=== PATIENT | male | born 1980 | race Caucasian/White ===

== ENCOUNTER 2017-03-19 06:41 | Emergency (ER) | payer MEDICARE ==
--- NOTE | 2017-03-19 07:17 | ERPHSYRPT ---
- History of Present Illness Time Seen by Provider: 03/19/17 07:12 Source: patient, family Exam Limitations: no limitations Patient Subjective Stated Complaint: was traveling from [facility] to home s/p sleep study et began to "feel funny" - states that his vision is blurry and he can not hear out of right ear with some pain in the forehead and right ear - reports some dizziness et slurred speech Triage Nursing Assessment: ambulatory to formerly [facility] with assistance per . alert/oriented - pleasant affect - with notable facial droop. skin pwd - no rash/injury. resps easy - non-labored Physician History: This is a 36-year-old white male with history of hydrocephaly and high blood pressure who has had a FLOWER GROWER shunt in the past. He apparently had just completed a sleep study at [facility] is brought by his with complaints that the patient suddenly complained that he could not see complaint of pain in his fore head he did not have any problems moving he did not have any loss of consciousness he is complaining of decreased hearing in his right ear. When I talk to the patient he has full range of motion to extremities he is alert oriented 3 has seen no focal deficits Patient states his symptoms came on just prior to arrival Past medical history includes hydrocephalus, high blood pressure. Past the surgical history includes FLOWER GROWER shunt. Timing/Duration: today (just prior to arrival) Severity: moderate Modifying Factors: Improves With: nothing Associated Symptoms: headaches, other (unable to see just prior to arrival decreased hearing right ear), No nausea, No vomiting, No abdominal pain, No shortness of breath, No heartburn, No diaphoresis, No cough, No chills, No chest pain, No fever, No loss of appetite, No malaise, No rash, No syncope, No seizure, No weakness Allergies/Adverse Reactions: No Known Drug Allergies Allergy (Unverified 07/17/16 09:27) Home Medications: Amlodipine Besylate [Norvasc] 5 mg PO DAILY 05/01/16 [History] Lisinopril 20 mg PO DAILY 05/01/16 [History] Sertraline HCl 100 mg [Zoloft 100 MG] 100 mg PO DAILY 05/01/16 [History] Fluticasone Propionate [Flonase NASAL] 16 gm NS DAILY 03/19/17 [History] Hx Tetanus, Diphtheria Vaccination/Date Given: Yes Hx Influenza Vaccination/Date Given: No Hx Pneumococcal Vaccination/Date Given: No Immunizations Up to Date: Yes - Review of Systems Constitutional: No Fever, No Chills Eyes: Vision Changes, No Discharge, No Eye Pain, No Eye Redness, No Itchy, No Photophobia, No Tearing, No Double Vision, No Foreign Body Sensation Ears, Nose, & Throat: Hearing Changes (decreased hearing right ear), No Ear Pain , No Ear Discharge, No Tinnitus, No Nose Pain, No Nose Congestion, No Nose Discharge, No Sinus Drainage, No Epistaxis, No Mouth Pain, No Mouth Swelling, No Loose Teeth, No Throat Pain, No Throat Swelling, No Hoarse, No Painful Swallowing, No Snoring, No Stridor Respiratory: No Cough, No Dyspnea Cardiac: No Chest Pain, No Edema, No Syncope Abdominal/Gastrointestinal: No Abdominal Pain, No Nausea, No Vomiting, No Diarrhea Genitourinary Symptoms: No Dysuria Musculoskeletal: No Back Pain, No Neck Pain Skin: No Rash Neurological: No Dizziness, No Focal Weakness, No Sensory Changes Psychological: No Symptoms Endocrine: No Symptoms All Other Systems: Reviewed and Negative - Past Medical History Pertinent Past Medical History: Yes Cardiac History: Hypertension Psycho-Social History: Depression Other Medical History: WATER ON THE BRAIN AT - Past Surgical History Past Surgical History: Yes Neuro Surgical History: Brain Shunt Other Surgical History: brain shunt replacement - Social History Smoking Status: Never smoker Exposure to second hand smoke: No Drug Use: none Patient Lives Alone: No - Nursing Vital Signs Nursing Vital Signs: Initial Vital Signs Temperature 99.4 F Temperature Source Oral Pulse Rate 103 Respiratory Rate 12 Blood Pressure [] 137/78 Pain Intensity 0 - Physical Exam General Appearance: no apparent distress, alert Eye Exam: PERRL/EOMI, eyes nml inspection, other (fundi unremarkable) Ears, Nose, Throat Exam: pharynx normal, moist mucous membranes, TM abnormal (R) , No dry mucous membranes, No TM abnormal (L), No pharyngeal erythema, No tonsillar exudate Neck Exam: normal inspection, non-tender, supple, full range of motion Respiratory Exam: normal breath sounds, lungs clear, No respiratory distress Cardiovascular Exam: regular rate/rhythm, normal heart sounds, normal peripheral pulses Gastrointestinal/Abdomen Exam: soft, normal bowel sounds, No tenderness, No mass Back Exam: normal inspection, normal range of motion, No CVA tenderness, No vertebral tenderness Extremity Exam: normal inspection, normal range of motion, pelvis stable Neurologic Exam: alert, oriented x 3, cooperative, normal mood/affect, nml cerebellar function, nml station & gait, sensation nml, other (patient is alert , oriented 3, cranial nerves II through XII, intact, DTRs symmetrical 2 over 4 , Luis Coma Scale is 15 finger speech is intelligible no facial droops no pronator drift recruiting associate equal and symmetrical 5 over5,ensation intact to all extremities), No motor deficits Skin Exam: normal color, warm, dry, No rash SpO2 Interpretation: normal (96%) SpO2: 96 Oxygen Delivery: Room Air - Course Nursing assessment & vital signs reviewed: Yes EKG Interpreted by Me: RATE (96 bpm), Sinus Rhythm, NORMAL AXIS, Other (EKG, normal sinus rhythm, 96 beats for minute, normal axis, no acute ST or T wave changes, essentially normal EKG) - CT Exams Head CT Interpretation: Tele-radiologist Report (head CT: Impression: Ventricular size has not increased compared to the prior study. No evidence of an acute intracranial abnormality. No significant change compared to prior examination.) Ordered Tests: Active Orders 24 hr Category Date Time Status ACCUCHECK [Accucheck] STAT Care 03/19/17 07:07 Active Lithographic Retoucher Apprentice STAT Care 03/19/17 07:19 Active EKG-ER Only STAT Care 03/19/17 07:19 Active IV Insertion STAT Care 03/19/17 07:19 Active IV Insertion-2nd Peripheral STAT Care 03/19/17 07:19 Active Visual Acuity STAT Care 03/19/17 07:21 Active HEAD WITHOUT CONTRAST [CT] Stat Exams 03/19/17 07:06 Taken CBC W DIFF Stat Lab 03/19/17 07:30 Completed CMP Stat Lab 03/19/17 07:30 Completed PTT Stat Lab 03/19/17 07:30 Completed Medication Summary Discontinued Medications Generic Name Dose Route Start Last Admin Trade Name Freq PRN Reason Stop Dose Admin Aspirin 81 mg 03/19/17 08:20 Baby Aspirin 81 Mg Chew PO 03/19/17 08:21 STAT ONE Ondansetron HCl 4 mg 03/19/17 08:09 03/19/17 08:19 Zofran 4 Mg/2 Ml Vial IV 03/19/17 08:10 4 mg STAT ONE Administration Ondansetron HCl Confirm 03/19/17 08:17 Zofran 4 Mg/2 Ml Vial Administered 03/19/17 08:18 Dose 4 mg .ROUTE .STK-MED ONE Lab/Rad Data: Laboratory Result Diagrams 03/19/17 07:30 03/19/17 07:30 Laboratory Results 03/19/17 03/19/17 03/19/17 Range/Units 07:30 07:30 07:30 WBC 10.9 H (4.0-10.5) K/mm3 RBC 5.03 (4.1-5.6) M/mm3 Hgb 15.5 (12.5-18.0) gm/dl Hct 45.0 (42-50) % MCV 89.5 (78-100) fl MCH 30.8 (26-32) pg MCHC 34.4 (32-36) g/dl RDW 13.2 (11.5-14.0) % Plt Count 220 (150-450) K/mm3 MPV 9.9 H (6-9.5) fl Gran % 76.9 H (36.0-66.0) % Lymphocytes % 16.4 L (24.0-44.0) % Monocytes % 6.0 (0.0-12.0) % Eosinophils % 0.6 (0.00-5.0) % Basophils % 0.1 (0.0-0.4) % Basophils # 0.01 (0-0.4) APTT 33.1 (24.1-36.1) SECONDS Sodium 141 (136-145) mEq/L Potassium 3.6 (3.5-5.1) mEq/L Chloride 105 (98-107) mEq/L Carbon Dioxide 28.3 (21-32) mEq/L Anion Gap 11.7 (5-15) MEQ/L BUN 17 (9-20) mg/dL Creatinine 1.01 (0.55-1.30) mg/dl Estimated GFR > 60 ML/MIN Glucose 122 H (70-110) MG/DL Calcium 8.9 (8.5-10.1) mg/dL Total Bilirubin 0.6 (0.2-1.0) mg/dL AST 14 L (15-37) U/L ALT 17 (12-78) U/L Alkaline Phosphatase 62 (46-116) U/L Serum Total Protein 7.9 (6.4-8.2) gm/dL Albumin 3.7 (3.4-5.0) g/dL - Progress Progress: improved Progress Note: 03/19/17 07:17 36-year-old white male with history of hydrocephaly brought by his with complaint of sudden complaint that he could not see on the way going home after a sleep study at [facility] patient also complaining of decreased hearing in his right ear. On physical examination patient is alert oriented 3 he is moving all extremities he has no facial droop his speech does not appear to be slurry to me recruiting associate are equal symmetrical 5 over 5 finger-nose within normal limits no pronator drift sensation is intact to all extremities for range of motion to all extremities. Patient does have somewhat of erythema of the right tympanic membrane. I'm really not finding any focal deficits this is this time he does have a history of not being able to see for a brief period of time in the car. Will go ahead and obtain CT of the head and appropriate labs 03/19/17 08:00 Patient states he feels like he is back to normal. He states he had several minutes of her being unable to see in the car on the way home this morning. And he had a frontal headache. Visual quintanilla appear to be intact. Vision is poor bilaterally but patient is seeing out of both eyes he wears glasses. Awaiting for head CT results and lab results. 03/19/17 08:[address] no acute changes. Patient was complaining of some nauseousness. Patient was given Zofran patient feels like he is back to normal. I've discussed the case with Dr. Covington will place patient on aspirin 81 mg per day I've given him when in the emergency room. Will also write for Zofran. Patient is to follow-up with Dr. Covington Wednesday. - Departure Time of Disposition: 08:25 Departure Disposition: Home Clinical Impression: Vision disturbance Headache Qualifiers: Headache type: unspecified Headache chronicity pattern: unspecified pattern Intractability: not intractable Qualified Code(s): R51 - Headache Condition: Fair Critical Care Time: No Instructions: Headache Additional Instructions: Return home. Aspirin 81 mg orally daily, Zithromax Z-Ti as directed, Follow-up with Dr. Covington Wednesday call for appointment, Return for acute distress or for severe symptoms. Prescriptions: Azithromycin 250 mg [Zithromax 250 MG TABLET] 0 mg PO ZPACK #6 tablet
[2017-03-19 07:40] LABS: BASOPHIL % 0.1 % (0.0-0.4); Eosinophil % 0.6 % (0.00-5.0); Granulocytes % 76.9 % (36.0-66.0); Lymphocytes % 16.4 % (24.0-44.0); Mean Cell Volume 89.5 fl (78-100); Mean Corpuscular Hemoglobin 30.8 pg (26-32); Mean Platelet Volume 9.9 fl (6-9.5); Platelet Count 220 K/mm3 (150-450); Red Blood Count 5.03 M/mm3 (4.1-5.6); Red Cell Distribution Width 13.2 % (11.5-14.0); White Blood Count 10.9 K/mm3 (4.0-10.5)
[2017-03-19 07:59] LABS: ALBUMIN 3.7 g/dL (3.4-5.0); ALKALINE PHOSPHATASE 62 U/L (46-116); ANION GAP 11.7 MEQ/L (5-15); BILIRUBIN,TOTAL 0.6 mg/dL (0.2-1.0); BLOOD UREA NITROGEN 17 mg/dL (9-20); CHLORIDE 105 mEq/L (98-107); Carbon Dioxide 28.3 mEq/L (21-32); Glucose 122 MG/DL (70-110); Potassium 3.6 mEq/L (3.5-5.1); SGOT/AST 14 U/L (15-37); SGPT/ALT 17 U/L (12-78); SODIUM 141 mEq/L (136-145); Total Protein 7.9 gm/dL (6.4-8.2)
[2017-03-19] MEDS ORDERED: Zofran 4 MG/2 ML VIAL IV ONE (08:09)
[2017-03-19] MEDS ORDERED: Zofran 4 MG/2 ML VIAL ONE (08:17)
[2017-03-19] MEDS ORDERED: BABY ASPIRIN 81 MG CHEW PO ONE (08:20)
[2017-03-19] MEDS ORDERED: BABY ASPIRIN 81 MG CHEW ONE (08:25)
[2017-03-19 08:39] VITALS: BP 127/77; PULSE 100; O2SAT 94
--- NOTE | 2017-03-19 09:20 | XRAY ---
Indication: Malaise. Loss of vision. Multiple contiguous axial images obtained through the head without contrast. Comparison: July 17, 2016. Stable bilateral ventricular shunts and previous left paramedian occipital craniectomy. 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 The ventricular system is stable in size and configuration without hydrocephalus. No acute intracranial hemorrhage or mass effect. Bony calvarium intact. Again there is complete opacification of the right mastoid air cells. Minimal mucosal thickening of both ethmoid sinuses. Remaining visualized paranasal sinuses and left mastoid air cells are clear. Impression: 1. Stable bilateral ventricular shunts without hydrocephalus. 2. Stable hypoplastic left cerebellum. 3. No new/acute intracranial abnormalities. 4. Stable complete opacification of right mastoid air cells presumed inflammatory. Comment: Preliminary interpretation was made by [facility]. No discrepancy. CT DI 70.38
== END 2017-03-19 08:37 ==
LOC: ED 06:41
DX: R51 Headache (principal); H53.9 Unspecified visual disturbance; R11.0 Nausea; R42 Dizziness and giddiness; R47.81 Slurred speech; I10 Essential (primary) hypertension
CPT/HCPCS: 36000; 36415; 70450; 80053; 82962; 85025; 85730; 93005; 93041; 96360; 96374; 99284; 99285; J2405; A9270-GY

== ENCOUNTER 2018-08-28 09:15 | Emergency (ER) | payer MEDICARE ==
[2018-08-28 09:24] VITALS: PULSE 95; O2SAT 97
--- NOTE | 2018-08-28 09:57 | ERPHSYRPT ---
- History of Present Illness Time Seen by Provider: 08/28/18 09:48 Source: patient Exam Limitations: no limitations Patient Subjective Stated Complaint: HEADACHE X 3 DAYS. NO N&V. STATES WAS DIZZY THIS MORNING WHEN WOKE UP. FEELS HOT AND COLD. Triage Nursing Assessment: ALERT AND ORIENTED. ANSWERS QUESTIONS APPROPIRATLY. PUPILS PERRLA. Physician History: 38-year-old white male with history of hydrocephaly, depression, DOCKWORKER shunt, arrives with complaint of headache off and on for 3 days located on the top of his head towards the occipital region "where his shunt is" off-and-on worse with movement. Patient not nauseous no vomiting no fevers, no movement changes no speech changes. Past medical history includes hydrocephaly with water and the brain at , depression, DOCKWORKER shunt one seizure approximately 2 years ago Past surgical history includes DOCKWORKER shunt, tonsillectomy Social history patient denies tobacco alcohol or illicit drug use Timing/Duration: day(s) (3 days) Severity: moderate Modifying Factors: Improves With: nothing Associated Symptoms: headaches, No nausea, No vomiting, No abdominal pain, No heartburn, No diaphoresis, No cough, No chills, No chest pain, No fever, No loss of appetite, No malaise, No rash, No syncope, No seizure, No weakness Allergies/Adverse Reactions: No Known Drug Allergies Allergy (Unverified 07/17/16 09:27) Home Medications: Amlodipine Besylate [Norvasc] 5 mg PO DAILY 05/01/16 [History] Lisinopril 20 mg PO DAILY 05/01/16 [History] Sertraline HCl 100 mg [Zoloft 100 MG] 100 mg PO DAILY 05/01/16 [History] Fluticasone Propionate [Flonase NASAL] 16 gm NS DAILY 03/19/17 [History] Divalproex Sodium [Divalproex Sodium ER] 500 mg PO BID 08/28/18 [History] Hx Tetanus, Diphtheria Vaccination/Date Given: Yes Hx Influenza Vaccination/Date Given: No Hx Pneumococcal Vaccination/Date Given: No - Review of Systems Constitutional: No Fever, No Chills Eyes: No Symptoms Ears, Nose, & Throat: No Symptoms Respiratory: No Cough, No Dyspnea Cardiac: No Chest Pain, No Edema, No Syncope Abdominal/Gastrointestinal: No Abdominal Pain, No Nausea, No Vomiting, No Diarrhea Genitourinary Symptoms: No Dysuria Musculoskeletal: No Back Pain, No Neck Pain Skin: No Rash Neurological: Headache, No Dizziness, No Focal Weakness, No Gait Changes, No Irritability, No Lethargy, No Paralysis, No Parasthesia, No Seizure, No Sensory Changes, No Speech Changes, No Tics, No Tremors, No Vertigo Psychological: No Symptoms Endocrine: No Symptoms All Other Systems: Reviewed and Negative - Past Medical History Pertinent Past Medical History: Yes Neurological History: Seizures Cardiac History: Hypertension Psycho-Social History: Depression Other Medical History: WATER ON THE BRAIN AT . 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, FOCAL SEIZURE 2016 - Past Surgical History Past Surgical History: Yes Neuro Surgical History: Brain Shunt Other Surgical History: brain shunt replacement MAY 2016 - Social History Smoking Status: Never smoker Exposure to second hand smoke: No Drug Use: none Patient Lives Alone: No - Nursing Vital Signs Nursing Vital Signs: Initial Vital Signs Temperature 97.4 F 08/28/18 09:15 Pulse Rate 95 H 08/28/18 09:15 Respiratory Rate 18 08/28/18 09:15 Blood Pressure 153/92 08/28/18 09:15 O2 Sat by Pulse Oximetry 97 08/28/18 09:15 Pain Scale Pain Intensity 0 - Physical Exam General Appearance: no apparent distress, alert Eye Exam: PERRL/EOMI, eyes nml inspection Ears, Nose, Throat Exam: normal ENT inspection, TMs normal, pharynx normal, moist mucous membranes Neck Exam: normal inspection, non-tender, supple, full range of motion Respiratory Exam: normal breath sounds, lungs clear, No respiratory distress Cardiovascular Exam: regular rate/rhythm, normal heart sounds, normal peripheral pulses, capillary refill <2 sec Gastrointestinal/Abdomen Exam: soft, normal bowel sounds, No tenderness, No mass Back Exam: normal inspection, normal range of motion, No CVA tenderness, No vertebral tenderness Extremity Exam: normal inspection, normal range of motion, pelvis stable Neurologic Exam: alert, oriented x 3, cooperative, open end spinning operator II-XII nml as tested, normal mood/affect, nml cerebellar function, nml station & gait, sensation nml, No motor deficits, No sensory deficit, No disoriented, No confusion, No agitation, No uncooperative, No intoxicated appearance, No depressed mood/affect , No motor weakness, No facial droop, No slurred speech, No aphasia, No dysarthria, No abnormal gait, No abnormal cerebellar tests, No abnormal open end spinning operator II- XII Skin Exam: normal color, warm, dry, No rash SpO2 Interpretation: normal (97%) SpO2: 97 - Course Nursing assessment & vital signs reviewed: Yes - CT Exams Head CT Interpretation: Tele-radiologist Report (CT of the head without contrast: Addendum to head CT: The prior head CT exam from [id number] now available for review and shows that the lateral ventricles on todays CTexam are markedly increased in size when compared to the prior head CT. The positions of the ventrulostomy shunt catheters are unchanged since prior head CT. 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 Bilateral parietaloccipitalccipital ventricular ostomy shunt catheters with the distal tip in the temporal horn of the right lateral ventricle within the main body of the left lateral ventricle the anterior horns of the brain measure 4.3 cm in transaxial diameter measured on image 22 of series 2 and image 60 of image 104. 3. Isa stroke program early CT score equals 10.), AAA Ordered Tests: Active Orders 24 hr Category Date Time Status IV Insertion STAT Care 08/28/18 11:17 Active HEAD WITHOUT CONTRAST [CT] Stat Exams 08/28/18 10:04 Taken CBC W DIFF Stat Lab 08/28/18 10:28 Completed CMP Stat Lab 08/28/18 10:28 Completed Lab/Rad Data: Laboratory Result Diagrams 08/28/18 10:28 08/28/18 10:28 Laboratory Results 08/28/18 08/28/18 08/28/18 Range/Units 10:28 10:28 10:28 WBC 7.0 (4.0-10.5) K/mm3 RBC 4.85 (4.1-5.6) M/mm3 Hgb 15.1 (12.5-18.0) gm/dl Hct 43.9 (42-50) % MCV 90.5 (78-100) fl MCH 31.1 (26-32) pg MCHC 34.4 (32-36) g/dl RDW 14.1 H (11.5-14.0) % Plt Count 190 (150-450) K/mm3 MPV 9.5 (6-9.5) fl Gran % 63.4 (36.0-66.0) % Eos # (Auto) 0.10 (0-0.5) Absolute Lymphs (auto) 1.86 (1.0-4.6) Absolute Monos (auto) 0.59 (0.0-1.3) Lymphocytes % 26.5 (24.0-44.0) % Monocytes % 8.4 (0.0-12.0) % Eosinophils % 1.4 (0.00-5.0) % Basophils % 0.3 (0.0-0.4) % Absolute Granulocytes 4.44 (1.4-6.9) Basophils # 0.02 (0-0.4) Sodium 140 (137-145) mmol/L Potassium 4.2 (3.5-5.1) mmol/L Chloride 106 (98-107) mmol/L Carbon Dioxide 24 (22-30) mmol/L Anion Gap 14.3 (5-15) MEQ/L BUN 20 (9-20) mg/dL Creatinine 0.81 (0.66-1.25) mg/dL Estimated GFR > 60.0 ML/MIN Glucose 117 H (74-106) mg/dL Calcium 9.4 (8.4-10.2) mg/dL Total Bilirubin 0.30 (0.2-1.3) mg/dL AST 62 H (17-59) U/L ALT 94 H (0-50) U/L Alkaline Phosphatase 41 (38-126) U/L Serum Total Protein 6.6 (6.3-8.2) g/dL Albumin 4.0 (3.5-5.0) g/dL Valproic Acid 86.1 (50-100) ug/mL - Progress Progress: improved Progress Note: 08/28/18 09:53 38-year-old white male with history of hydrocephaly, DOCKWORKER shunt who apparently had a grand mal seizure approximately 2 years ago. He arrives with complaint of pain in the back of his head described as sharp worse with moving his head around and activity symptoms for 3 days. He states that he has taken Advil for this. Although the patient apparently rated his pain as 6, he now states that his head is a better and his pain is worse when he moves his head around. He has not had any fevers he is not vomiting no nausea. Patient does state that last time he had similar symptoms he apparently had to have his shunt replaced. Patient did have a history of a grand mal seizure approximately 2 years ago. Patient does look to his spouse for answers to his questions especially when questioned about pain. I did offer patient a shot of morphine for his pain he does not want this. When I offered Tylenol he stated that he had taken Advil at home but did not get good pain relief. Patient really states that this point he does not want anything for his pain. Will go ahead and obtain CBC CMP patient states he is on valproic acid for his "moods" Will check a level. We'll go ahead and check head CT to rule out worsening hydrocephaly. 08/28/18 11:05 CT of the head is obtained and shows the lateral ventricles on today's CT or markedly increased in size when compared to the prior head CT done on 02/02/2018 the positions of the ventriculostomy shunt catheters are unchanged since prior head CT Patient with Isa stroke program early CT score is 10 Patient appears to be stable at this time I have contacted [facility] one call and the nurses have arranged to have radiology send patient's CT from today as well as prior CT to [facility] Patient's CBC chemistry are essentially normal with the exception of slight elevation of liver functions. 08/28/18 11:18 Patient's case is discussed with Dr. Franklin, neurosurgeonist at [facility]. He recommended that patient be sent through the emergency room at [facility]. Patient is stable at this time will place a saline lock. Send patient on monitor. 08/28/18 11:20 - Departure Time of Disposition: 11:20 Departure Disposition: Transfer ([facility]) Clinical Impression: Hydrocephalus Headache Qualifiers: Headache type: unspecified Headache chronicity pattern: acute headache Intractability: not intractable Qualified Code(s): R51 - Headache Condition: Fair Critical Care Time: No Referrals: MARY LOCKETT MD [Primary Care Provider] -
[2018-08-28 10:30] LABS: BASOPHIL % 0.3 % (0.0-0.4); Basophil (Absolute #) 0.02 (0-0.4); Eosinophil % 1.4 % (0.00-5.0); Granulocyte Absolute (ANC) 4.44 (1.4-6.9); Granulocytes % 63.4 % (36.0-66.0); Hematocrit 43.9 % (42-50); Hemoglobin 15.1 gm/dl (12.5-18.0); Lymphocyte (Absolute #) 1.86 (1.0-4.6); Lymphocytes % 26.5 % (24.0-44.0); Mean Cell Volume 90.5 fl (78-100); Mean Corpuscular Hemoglobin 31.1 pg (26-32); Mean Corpuscular Hgb Concent. 34.4 g/dl (32-36); Mean Platelet Volume 9.5 fl (6-9.5); Monocyte (Absolute #) 0.59 (0.0-1.3); Monocytes % 8.4 % (0.0-12.0); Platelet Count 190 K/mm3 (150-450); Red Blood Count 4.85 M/mm3 (4.1-5.6); Red Cell Distribution Width 14.1 % (11.5-14.0)
[2018-08-28 10:47] LABS: ALKALINE PHOSPHATASE 41 U/L (38-126); ANION GAP 14.3 MEQ/L (5-15); BLOOD UREA NITROGEN 20 mg/dL (9-20); CHLORIDE 106 mmol/L (98-107); Calcium 9.4 mg/dL (8.4-10.2); Carbon Dioxide 24 mmol/L (22-30); Creatinine 1 0.81 mg/dL (0.66-1.25); Glucose 117 mg/dL (74-106); Potassium 4.2 mmol/L (3.5-5.1); SGOT/AST 62 U/L (17-59); SGPT/ALT 94 U/L (0-50); SODIUM 140 mmol/L (137-145); Total Protein 6.6 g/dL (6.3-8.2)
[2018-08-28 11:05] VITALS: BP 128/89
--- NOTE | 2018-08-28 20:28 | XRAY ---
Indication: Headache. History hydrocephalus with shunt. Multiple contiguous axial images obtained through the head without contrast. Comparison: February 02, 2018. Again there is left paramedian occipital craniotomy, hypoplastic left cerebellum, and bilateral ventricular shunt catheters unchanged in position. New communicating type hydrocephalus without transependymal edema. More specifically the left and right lateral ventricles are at least 2 cm in diameter, previously slitlike. Third and fourth ventricles are also prominent. No acute intracranial hemorrhage or mass effect. Remaining bony calvarium intact. Stable partial opacification of the right mastoid air cells. Visualized paranasal sinuses and left mastoid air cells remain clear. Impression: 1. New communicating type hydrocephalus with bilateral ventricular shunt catheters in situ. 2. Stable hypoplastic left cerebellum and partial opacification of right mastoid air cells. Comment: Preliminary interpretation was made by [facility]. No critical discrepancy. CTDI 70.87
== END 2018-08-28 12:00 | disposition short-term general hospital (02) ==
LOC: ED 09:15
DX: G91.9 Hydrocephalus, unspecified (principal); R51 Headache; R42 Dizziness and giddiness; G40.909 Epilepsy, unspecified, not intractable, without status epilepticus; I10 Essential (primary) hypertension; F32.9 Major depressive disorder, single episode, unspecified; Z79.899 Other long term (current) drug therapy
CPT/HCPCS: 36000; 36415; 70450; 80053; 80164; 85025; 99285

== ENCOUNTER 2018-10-22 18:36 | Emergency (ER) | payer MEDICARE ==
[2018-10-22] MEDS ORDERED: cereBYX 50 MG/ML*** 1,000 MG in Sodium Chloride 0.9% 100 ML IVPB 100 ML IV ONE (18:57)
--- NOTE | 2018-10-22 18:59 | ERPHSYRPT ---
- History of Present Illness Time Seen by Provider: 10/22/18 18:55 Source: patient Exam Limitations: clinical condition Patient Subjective Stated Complaint: pt here for seizure at home that lasted about 3 minutes according to , pt has hx of seizures. Triage Nursing Assessment: pt alert, oreinted, co cramping to both lower legs, and states he feels tried Physician History: PATIENT WITH A HISTORY OF HYDROCEPHALUS AT WITH GENERAL DOC SHUNT INSERTION AND A HISTORY OF SEIZURES. PATIENT STATES HE DISCONTINUED HIS SEIZURE MEDICATION KEPPRA SEVERAL MONTHS AGO HAD A SEIZURE TONIGHT, PATIENT DENIES HEADACHE, HEAD OR NECK PAIN. PATIENT UNDERWENT A SHUNT REVISION IN APRIL 2016 AND AUGUST 2018. Timing/Duration: today Severity: moderate Character of Deficits: none Deficits: no difficulties Baseline/Normal Cognition: alert oriented x 3 Current Cognition: alert oriented x 3 Baseline Gait: walks w/o assistance Associated Symptoms: denies symptoms Allergies/Adverse Reactions: No Known Drug Allergies Allergy (Verified 10/22/18 18:45) Home Medications: Amlodipine Besylate [Norvasc] 5 mg PO DAILY 05/01/16 [History] Lisinopril 20 mg PO DAILY 05/01/16 [History] Sertraline HCl 100 mg [Zoloft 100 MG] 100 mg PO DAILY 05/01/16 [History] Fluticasone Propionate [Flonase NASAL] 16 gm NS DAILY 03/19/17 [History] Divalproex Sodium [Divalproex Sodium ER] 500 mg PO BID 08/28/18 [History] Hx Tetanus, Diphtheria Vaccination/Date Given: No Hx Influenza Vaccination/Date Given: Yes Hx Pneumococcal Vaccination/Date Given: No Immunizations Up to Date: Yes - Review of Systems Constitutional: No Fever, No Chills Eyes: No Symptoms Ears, Nose, & Throat: No Symptoms Respiratory: No Symptoms, No Cough, No Dyspnea Cardiac: No Symptoms, No Chest Pain, No Edema, No Syncope Abdominal/Gastrointestinal: No Symptoms, No Abdominal Pain, No Nausea, No Vomiting, No Diarrhea Genitourinary Symptoms: No Symptoms, No Dysuria Musculoskeletal: No Symptoms, No Back Pain, No Neck Pain Skin: No Rash Neurological: Seizure, No Dizziness, No Focal Weakness, No Sensory Changes Psychological: No Symptoms Endocrine: No Symptoms All Other Systems: Reviewed and Negative - Past Medical History Pertinent Past Medical History: Yes Neurological History: Seizures Cardiac History: Hypertension Psycho-Social History: Depression Other Medical History: 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, FOCAL SEIZURE 2017 - Past Surgical History Past Surgical History: Yes Neuro Surgical History: Brain Shunt Other Surgical History: brain shunt replacement 2018 - Social History Smoking Status: Never smoker Exposure to second hand smoke: No Drug Use: none Patient Lives Alone: No - Nursing Vital Signs Nursing Vital Signs: Initial Vital Signs Temperature 99.0 F 10/22/18 18:37 Pulse Rate 107 H 10/22/18 18:37 Respiratory Rate 16 10/22/18 18:37 Blood Pressure 150/89 10/22/18 18:37 O2 Sat by Pulse Oximetry 93 L 10/22/18 18:37 Pain Scale Pain Intensity 4 - [place] Scale Best Eye Response ([place]): (4) open spontaneously Best Verbal Response ([place]): (5) oriented Best Motor Response ([place]): (6) obeys commands [place] Total: 15 - Physical Exam General Appearance: no apparent distress, alert Eye Exam: bilateral eye: normal inspection, PERRL, EOMI Ears, Nose, Throat Exam: normal ENT inspection, moist mucous membranes Neck Exam: normal inspection, non-tender, supple, other (NO POST CERC) Respiratory: normal breath sounds, lungs clear, airway intact, No respiratory distress Cardiovascular: regular rate/rhythm, No edema Gastrointestinal: soft, normal bowel sounds (NONTENDER), No tenderness, No distention Back Exam: normal inspection Extremity Exam: normal inspection, No pedal edema Peripheral Pulses: carotid (R): 2+, carotid (L): 2+, femoral (R): 2+, femoral (L ): 2+, dorsalis-pedis (R): 2+, dorsalis-pedis (L): 2+ 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, 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 Exam: normal hearing, normal speech, tongue midline Coordination/Gait: normal finger to nose, normal gait DTR: bicep (R): 2+, bicep (L): 2+, tricep (R): 2+, tricep (L): 2+, knee (R): 2+ , knee (L): 2+, ankle (R): 2+, ankle (L): 2+ Skin Exam: normal color, warm, dry, No rash SpO2 Interpretation: normal SpO2: 93 Oxygen Delivery: Room Air - CT Exams Head CT Interpretation: Tele-radiologist Report (OVERALL MARKEDLY DECREASED SIZE OF THE VENTRICLES COMPARED WITH PRIOR HEAD CT FROM AUGUST 2018 CANNOT EXCLUDE POSSIBILITY OF OVER SHUNTING) Ordered Tests: Active Orders 24 hr Category Date Time Status EKG-ER Only STAT Care 10/22/18 18:57 Active IV Insertion STAT Care 10/22/18 18:57 Active HEAD WITHOUT CONTRAST [CT] Stat Exams 10/22/18 18:57 Taken CBC W DIFF Stat Lab 10/22/18 19:01 Completed CMP Stat Lab 10/22/18 19:01 Completed MAGNESIUM Stat Lab 10/22/18 19:01 Completed Medication Summary Generic Name Dose Route Start Last Admin Trade Name Freq PRN Reason Stop Dose Admin Sodium Chloride 1,000 mls @ 100 mls/hr 10/22/18 19:00 10/22/18 19:14 Sodium Chloride 0.9% 1000 Ml IV 11/21/18 18:59 100 mls/hr .Q10H DUNCAN Administration Discontinued Medications Generic Name Dose Route Start Last Admin Trade Name Freq PRN Reason Stop Dose Admin Fosphenytoin Sodium 1,000 mg/ 120 mls @ 240 mls/hr 10/22/18 18:57 10/22/18 19 :15 Sodium Chloride IV 10/22/18 19:26 Not Given STAT ONE Sodium Chloride Confirm 10/22/18 19:05 Sodium Chloride 0.9% 100 Ml Ivpb Administered 10/22/18 19:06 Dose 100 mls @ ud IV .STK-MED ONE Levetiracetam 1,000 mg/ 110 mls @ 400 mls/hr 10/22/18 19:10 10/22/18 19:13 Dextrose IV 10/22/18 19:26 400 mls/hr STAT ONE Administration Levetiracetam Confirm 10/22/18 19:05 Keppra 500 Mg/5 Ml Administered 10/22/18 19:06 Dose 1,000 mg .ROUTE .STK-MED ONE Lab/Rad Data: Laboratory Result Diagrams 10/22/18 19:01 10/22/18 19:01 Laboratory Results 10/22/18 10/22/18 10/22/18 Range/Units 19:01 19:01 19:01 WBC 11.6 H (4.0-10.5) K/mm3 RBC 4.90 (4.1-5.6) M/mm3 Hgb 15.5 (12.5-18.0) gm/dl Hct 45.3 (42-50) % MCV 92.4 (78-100) fl MCH 31.6 (26-32) pg MCHC 34.2 (32-36) g/dl RDW 13.6 (11.5-14.0) % Plt Count 258 (150-450) K/mm3 MPV 10.0 H (6-9.5) fl Gran % 64.3 (36.0-66.0) % Eos # (Auto) 0.09 (0-0.5) Absolute Lymphs (auto) 2.96 (1.0-4.6) Absolute Monos (auto) 1.07 (0.0-1.3) Lymphocytes % 25.5 (24.0-44.0) % Monocytes % 9.2 (0.0-12.0) % Eosinophils % 0.8 (0.00-5.0) % Basophils % 0.2 (0.0-0.4) % Absolute Granulocytes 7.47 H (1.4-6.9) Basophils # 0.02 (0-0.4) Sodium 141 (137-145) mmol/L Potassium 3.7 (3.5-5.1) mmol/L Chloride 106 (98-107) mmol/L Carbon Dioxide 23 (22-30) mmol/L Anion Gap 15.6 H (5-15) MEQ/L BUN 19 (9-20) mg/dL Creatinine 0.92 (0.66-1.25) mg/dL Estimated GFR > 60.0 ML/MIN Glucose 98 (74-106) mg/dL Calcium 9.3 (8.4-10.2) mg/dL Magnesium 2.2 (1.6-2.3) mg/dL Total Bilirubin 0.40 (0.2-1.3) mg/dL AST 28 (17-59) U/L ALT 38 (0-50) U/L Alkaline Phosphatase 61 (38-126) U/L Serum Total Protein 7.8 (6.3-8.2) g/dL Albumin 4.6 (3.5-5.0) g/dL - Progress Progress Note: 10/22/18 21:15 ADMINISTERED IV NORMAL SALINE 100ML/HR kEPPRA 1000 MG IVPB OVER ONE HOUR 10/22/18 21:46, PATIENT UNDERWENT A SHUNT REVISION AFTER HEAD CT IN AUG 2018 Counseled pt/family regarding: lab results, need for follow-up, rad results - Departure Time of Disposition: 22:00 Departure Disposition: Home Clinical Impression: SEIZURE DISORDER, MEDICATION NONCOMPLIANCE Condition: Stable Critical Care Time: No Referrals: MARY LCOKETT MD [Primary Care Provider] - Additional Instructions: BEGIN kEPPRA 500 MG TWICE DAILY. CONSULTY YOUR PRIMARY CARE PROVIDER AND NEUROLOGIST FOR EVALUATION. RETURN TO THE EMERGENCY ROOM FOR RECURRENT SEIZURES. Prescriptions: Levetiracetam [Keppra 500 mg ] 500 mg PO BID #60 tablet
[2018-10-22] MEDS ORDERED: Sodium Chloride 0.9% 1000 ML 1,000 ML IV SCH (19:00)
[2018-10-22] MEDS ORDERED: Sodium Chloride 0.9% 100 ML IVPB 100 ML IV ONE (19:05)
[2018-10-22] MEDS ORDERED: Keppra 500 MG/5 ML ONE (19:05)
[2018-10-22] MEDS ORDERED: Sodium Chloride 0.9% 1000 ML 1,000 ML ONE (19:09)
[2018-10-22] MEDS ORDERED: Keppra 500 MG/5 ML*** 1,000 MG in D5w 100ML Mini Bag 100 ML 100 ML IV ONE (19:10)
[2018-10-22 19:20] LABS: BASOPHIL % 0.2 % (0.0-0.4); Basophil (Absolute #) 0.02 (0-0.4); Eosinophil % 0.8 % (0.00-5.0); Eosinophil (Absolute #) 0.09 (0-0.5); Granulocyte Absolute (ANC) 7.47 (1.4-6.9); Granulocytes % 64.3 % (36.0-66.0); Hematocrit 45.3 % (42-50); Hemoglobin 15.5 gm/dl (12.5-18.0); Lymphocyte (Absolute #) 2.96 (1.0-4.6); Lymphocytes % 25.5 % (24.0-44.0); Mean Cell Volume 92.4 fl (78-100); Mean Corpuscular Hemoglobin 31.6 pg (26-32); Mean Corpuscular Hgb Concent. 34.2 g/dl (32-36); Monocyte (Absolute #) 1.07 (0.0-1.3); Monocytes % 9.2 % (0.0-12.0); Platelet Count 258 K/mm3 (150-450); Red Cell Distribution Width 13.6 % (11.5-14.0); White Blood Count 11.6 K/mm3 (4.0-10.5)
[2018-10-22 19:24] LABS: ALBUMIN 4.6 g/dL (3.5-5.0); ALKALINE PHOSPHATASE 61 U/L (38-126); ANION GAP 15.6 MEQ/L (5-15); BLOOD UREA NITROGEN 19 mg/dL (9-20); CHLORIDE 106 mmol/L (98-107); Calcium 9.3 mg/dL (8.4-10.2); Carbon Dioxide 23 mmol/L (22-30); Creatinine 1 0.92 mg/dL (0.66-1.25); Glucose 98 mg/dL (74-106); Potassium 3.7 mmol/L (3.5-5.1); SGOT/AST 28 U/L (17-59); SGPT/ALT 38 U/L (0-50); SODIUM 141 mmol/L (137-145); Total Protein 7.8 g/dL (6.3-8.2)
--- NOTE | 2018-10-22 22:00 | XRAY ---
Indication: Seizure. Multiple contiguous axial images obtained through the head without contrast. Comparison: August 28, 2018. Stable left paramedian occipital craniotomy, hypoplastic left cerebellum, and bilateral ventricular shunt catheters. Ventricles are now more normal in appearance and similar to older March 19, 2017 exam. No acute intracranial hemorrhage or mass effect. Remaining bony calvarium intact. Stable opacification of the right mastoid air cells. Visualized paranasal sinuses and left mastoid air cells are clear. Impression: 1. Stable bilateral ventricular shunt catheters without hydrocephalus and stable hypoplastic left cerebellum. 2. No acute intracranial abnormalities. 3. Stable opacification of the right mastoid air cells. Comment: Preliminary interpretation was made by [facility]. No discrepancy. CTDI 71.08
[2018-10-22 22:14] VITALS: BP 152/92; PULSE 97; O2SAT 95
== END 2018-10-22 22:14 | disposition home or self-care (01) ==
LOC: ED 18:36
DX: G40.909 Epilepsy, unspecified, not intractable, without status epilepticus (principal); Z91.14 Patient's other noncompliance with medication regimen; Z79.899 Other long term (current) drug therapy; Z98.2 Presence of cerebrospinal fluid drainage device
CPT/HCPCS: 36000; 36415; 70450; 80053; 83735; 85025; 93005; 96360; 96365; 99284; J1953

== ENCOUNTER 2019-03-05 21:01 | Emergency (ER) | payer MEDICARE ==
[2019-03-05] MEDS ORDERED: Ativan 2 MG/1 ML VIAL ONE ×3 (21:14→22:47)
[2019-03-05] MEDS ORDERED: Ativan 2 MG/1 ML VIAL IV ONE (21:15)
[2019-03-05] MEDS ORDERED: Sodium Chloride 0.9% 1000 ML 1,000 ML IV SCH (21:15)
--- NOTE | 2019-03-05 21:20 | ERPHSYRPT ---
- History of Present Illness Time Seen by Provider: 03/05/19 21:17 Source: EMS Physician History: Patient brought by medics with complaint of altered level of consciousness since today. Nurse contacted me and states patient actively seizing. Patient with chronic tonic activity when I walk in the room. 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 Past surgical history includes 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 Timing/Duration: today Severity: moderate Modifying Factors: Improves With: nothing Associated Symptoms: seizure, other (altered level of consciousness at home), No nausea, No vomiting, No abdominal pain, No shortness of breath, No heartburn , No diaphoresis, No cough, No chills, No chest pain, No fever, No headaches, No loss of appetite, No malaise, No rash, No syncope, No weakness Allergies/Adverse Reactions: No Known Drug Allergies Allergy (Verified 10/22/18 18:45) Home Medications: Amlodipine Besylate [Norvasc] 5 mg PO DAILY 05/01/16 [History] Lisinopril 20 mg PO DAILY 05/01/16 [History] Sertraline HCl 100 mg [Zoloft 100 MG] 100 mg PO DAILY 05/01/16 [History] Fluticasone Propionate [Flonase NASAL] 16 gm NS DAILY 03/19/17 [History] Divalproex Sodium [Divalproex Sodium ER] 500 mg PO BID 08/28/18 [History] Hx Tetanus, Diphtheria Vaccination/Date Given: No Hx Influenza Vaccination/Date Given: Yes Hx Pneumococcal Vaccination/Date Given: No - Review of Systems Constitutional: No Fever, No Chills Eyes: No Symptoms Ears, Nose, & Throat: No Symptoms Respiratory: No Cough, No Dyspnea Cardiac: No Chest Pain, No Edema, No Syncope Abdominal/Gastrointestinal: No Abdominal Pain, No Nausea, No Vomiting, No Diarrhea Genitourinary Symptoms: No Dysuria Musculoskeletal: No Back Pain, No Neck Pain Skin: No Rash Neurological: Seizure, Other (altered level of consciousness at home) Psychological: No Symptoms Endocrine: No Symptoms All Other Systems: Reviewed and Negative - Past Medical History Pertinent Past Medical History: Yes Neurological History: Seizures Cardiac History: Hypertension Psycho-Social History: Depression Other Medical History: 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, FOCAL SEIZURE 2016 - Past Surgical History Past Surgical History: Yes Neuro Surgical History: Brain Shunt Other Surgical History: brain shunt replacement 2018 - Social History Smoking Status: Never smoker Exposure to second hand smoke: No Drug Use: none Patient Lives Alone: No - Nursing Vital Signs Nursing Vital Signs: Initial Vital Signs Temperature 98.3 F 03/05/19 21:07 Pulse Rate 76 03/05/19 21:07 Respiratory Rate 20 03/05/19 21:07 Blood Pressure 176/103 03/05/19 21:07 O2 Sat by Pulse Oximetry 90 L 03/05/19 21:07 Pain Scale Pain Intensity 0 - Physical Exam General Appearance: other (well-developed obese white male tonic clonic activity when I enter the room.mostly involving his head no flailing of the arms or legs) Eye Exam: PERRL/EOMI, eyes nml inspection Ears, Nose, Throat Exam: normal ENT inspection, TMs normal, pharynx normal, moist mucous membranes Neck Exam: normal inspection, non-tender, supple, full range of motion Respiratory Exam: normal breath sounds, lungs clear, No respiratory distress Cardiovascular Exam: regular rate/rhythm, normal heart sounds, normal peripheral pulses, capillary refill <2 sec Gastrointestinal/Abdomen Exam: soft, normal bowel sounds, No tenderness, No mass Back Exam: normal inspection, normal range of motion, No CVA tenderness, No vertebral tenderness Extremity Exam: normal inspection, normal range of motion, pelvis stable Neurologic Exam: alert, oriented x 3, cooperative, seed buyer II-XII nml as tested, normal mood/affect, nml cerebellar function, nml station & gait, sensation nml, No motor deficits Skin Exam: normal color, warm, dry, No rash SpO2 Interpretation: normal - Course Nursing assessment & vital signs reviewed: Yes EKG Interpreted by Me: RATE (122 bpm), Sinus Tach, NORMAL AXIS, Other (EKG: Sinus tachycardia, 122 bpm, normal axis, no acute ST or T wave changes) - CT Exams Head CT Interpretation: Tele-radiologist Report (head CT: Impression 1. No acute intracranial findings 2. No interval change in size or configuration of the ventricles) Ordered Tests: Active Orders 24 hr Category Date Time Status Accucheck STAT Care 03/05/19 21:15 Active EKG-ER Only STAT Care 03/05/19 21:15 Active Marinelli [Catheter-[place] Marinelli] STAT Care 03/05/19 22:40 Active IV Insertion STAT Care 03/05/19 21:15 Active HEAD WITHOUT CONTRAST [CT] Stat Exams 03/05/19 21:16 Taken CBC W DIFF Stat Lab 03/05/19 21:15 Completed CMP Stat Lab 03/05/19 21:15 Completed UA W/RFX UR CULTURE Stat Lab 03/05/19 22:40 Completed Medication Summary Generic Name Dose Route Start Last Admin Trade Name Freq PRN Reason Stop Dose Admin Sodium Chloride 1,000 mls @ 100 mls/hr 03/05/19 21:15 03/05/19 22:07 Sodium Chloride 0.9% 1000 Ml IV 04/04/19 21:14 100 mls/hr .Q10H DUNCAN Administration Fosphenytoin Sodium 1,000 mg/ 120 mls @ 240 mls/hr 03/06/19 00:05 03/06/19 00 :25 Sodium Chloride IV 03/06/19 00:34 240 mls/hr STAT ONE Administration Discontinued Medications Generic Name Dose Route Start Last Admin Trade Name Freq PRN Reason Stop Dose Admin Fosphenytoin Sodium Confirm 03/05/19 23:14 Cerebyx 50 Mg/Ml Administered 03/05/19 23:15 Dose 1,000 mg .ROUTE .STK-MED ONE Fosphenytoin Sodium Confirm 03/06/19 00:08 Cerebyx 50 Mg/Ml Administered 03/06/19 00:09 Dose 500 mg .ROUTE .STK-MED ONE Fosphenytoin Sodium 500 mg/ 110 mls @ 300 mls/hr 03/05/19 23:13 03/05/19 23: 22 Sodium Chloride IV 03/05/19 23:34 300 mls/hr STAT ONE Administration Sodium Chloride Confirm 03/05/19 23:18 Sodium Chloride 0.9% 100 Ml Ivpb Administered 03/05/19 23:19 Dose 200 mls @ ud IV .STK-MED ONE Lorazepam Confirm 03/05/19 21:14 Ativan 2 Mg/1 Ml Vial Administered 03/05/19 21:15 Dose 2 mg .ROUTE .STK-MED ONE Lorazepam 1 mg 03/05/19 21:15 03/05/19 22:38 Ativan 2 Mg/1 Ml Vial IV 03/05/19 21:16 1 mg STAT ONE Administration Lorazepam Confirm 03/05/19 22:01 Ativan 2 Mg/1 Ml Vial Administered 03/05/19 22:02 Dose 2 mg .ROUTE .STK-MED ONE Lorazepam Confirm 03/05/19 22:47 Ativan 2 Mg/1 Ml Vial Administered 03/05/19 22:48 Dose 2 mg .ROUTE .STK-MED ONE Lab/Rad Data: Laboratory Result Diagrams 03/05/19 21:15 03/05/19 21:15 Laboratory Results 03/05/19 03/05/19 03/05/19 Range/Units 22:40 21:15 21:15 WBC (4.0-10.5) K/mm3 RBC (4.1-5.6) M/mm3 Hgb (12.5-18.0) gm/dl Hct (42-50) % MCV (78-100) fl MCH (26-32) pg MCHC (32-36) g/dl RDW (11.5-14.0) % Plt Count (150-450) K/mm3 MPV (6-9.5) fl Gran % (36.0-66.0) % Eos # (Auto) (0-0.5) Absolute Lymphs (auto) (1.0-4.6) Absolute Monos (auto) (0.0-1.3) Lymphocytes % (24.0-44.0) % Monocytes % (0.0-12.0) % Eosinophils % (0.00-5.0) % Basophils % (0.0-0.4) % Absolute Granulocytes (1.4-6.9) Basophils # (0-0.4) Sodium 142 (137-145) mmol/L Potassium 3.8 (3.5-5.1) mmol/L Chloride 102 (98-107) mmol/L Carbon Dioxide 30 (22-30) mmol/L Anion Gap 14.0 (5-15) MEQ/L BUN 16 (9-20) mg/dL Creatinine 0.69 (0.66-1.25) mg/dL Estimated GFR > 60.0 ML/MIN Glucose 131 H (74-106) mg/dL Calcium 8.9 (8.4-10.2) mg/dL Total Bilirubin 0.30 (0.2-1.3) mg/dL AST 32 (17-59) U/L ALT 30 (0-50) U/L Alkaline Phosphatase 48 (38-126) U/L Serum Total Protein 8.0 (6.3-8.2) g/dL Albumin 4.5 (3.5-5.0) g/dL Urine Color COLORLESS (YELLOW) Urine Appearance CLEAR (CLEAR) Urine pH 7.0 (5-6) Ur Specific [place] 1.009 (1.005-1.025) Urine Protein NEGATIVE (Negative) Urine Ketones NEGATIVE (NEGATIVE) Urine Blood MODERATE (0-5) Scott/ul Urine Nitrite NEGATIVE (NEGATIVE) Urine Bilirubin NEGATIVE (NEGATIVE) Urine Urobilinogen NEGATIVE (0-1) mg/dL Ur Leukocyte Esterase NEGATIVE (NEGATIVE) Urine WBC (Auto) NONE (0-5) /HPF Urine RBC (Auto) 3-5 (0-2) /HPF U Epithel Cells (Auto) NONE (FEW) /HPF Urine Bacteria (Auto) NONE (NEGATIVE) /HPF Urine Culture Reflexed NO (NO) Urine Glucose 50 (NEGATIVE) mg/dL Valproic Acid 97.6 (50-100) ug/mL 03/05/19 Range/Units 21:15 WBC 9.7 (4.0-10.5) K/mm3 RBC 4.89 (4.1-5.6) M/mm3 Hgb 15.5 (12.5-18.0) gm/dl Hct 45.8 (42-50) % MCV 93.7 (78-100) fl MCH 31.7 (26-32) pg MCHC 33.8 (32-36) g/dl RDW 13.2 (11.5-14.0) % Plt Count 230 (150-450) K/mm3 MPV 9.5 (6-9.5) fl Gran % 61.6 (36.0-66.0) % Eos # (Auto) 0.09 (0-0.5) Absolute Lymphs (auto) 2.67 (1.0-4.6) Absolute Monos (auto) 0.95 (0.0-1.3) Lymphocytes % 27.5 (24.0-44.0) % Monocytes % 9.8 (0.0-12.0) % Eosinophils % 0.9 (0.00-5.0) % Basophils % 0.2 (0.0-0.4) % Absolute Granulocytes 5.97 (1.4-6.9) Basophils # 0.02 (0-0.4) Sodium (137-145) mmol/L Potassium (3.5-5.1) mmol/L Chloride (98-107) mmol/L Carbon Dioxide (22-30) mmol/L Anion Gap (5-15) MEQ/L BUN (9-20) mg/dL Creatinine (0.66-1.25) mg/dL Estimated GFR ML/MIN Glucose (74-106) mg/dL Calcium (8.4-10.2) mg/dL Total Bilirubin (0.2-1.3) mg/dL AST (17-59) U/L ALT (0-50) U/L Alkaline Phosphatase (38-126) U/L Serum Total Protein (6.3-8.2) g/dL Albumin (3.5-5.0) g/dL Urine Color (YELLOW) Urine Appearance (CLEAR) Urine pH (5-6) Ur Specific [place] (1.005-1.025) Urine Protein (Negative) Urine Ketones (NEGATIVE) Urine Blood (0-5) Scott/ul Urine Nitrite (NEGATIVE) Urine Bilirubin (NEGATIVE) Urine Urobilinogen (0-1) mg/dL Ur Leukocyte Esterase (NEGATIVE) Urine WBC (Auto) (0-5) /HPF Urine RBC (Auto) (0-2) /HPF U Epithel Cells (Auto) (FEW) /HPF Urine Bacteria (Auto) (NEGATIVE) /HPF Urine Culture Reflexed (NO) Urine Glucose (NEGATIVE) mg/dL Valproic Acid (50-100) ug/mL - Progress Progress: improved Progress Note: 03/06/19 00:06 38-year-old white male with history of hydrocephalus, seizure disorder, 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 Brought by ambulance with complaint of decreased level of consciousness since today. Patient with tonic-clonic seizure shortly after arrival mostly involving his head. Was given Ativan 1 mg IV 3, he was given Cerebyx [address] was aged obtained which showed no acute intercranial changes no changes in configuration of the ventricle Patient was CBC White blood cell 9.7 hemoglobin 15.5 hematocrit 45.8 platelets 2 :30 chemistry sodium 142 potassium 3.8 chloride 102 bicarbonate 30 BUN 16 creatinine 0.69 glucose 131 Valproic acid was 7.6 patient with an EKG remarkable for sinus tachycardia 1 22 bpm normal axis no acute ST or T wave changes I contacted [facility] one call I was placed in contact with Dr. Jenkins neurology he recommended patient get gram of Celebrex IV. He accepted the patient for transfer patient will be transferred to [facility] emergency room. - Departure Departure Disposition: Transfer Clinical Impression: Status epilepticus Condition: Fair Critical Care Time: No Referrals: MARY LOCKETT MD [Primary Care Provider] -
[2019-03-05] MEDS ORDERED: Sodium Chloride 0.9% 1000 ML 1,000 ML ONE (22:02)
[2019-03-05 22:31] LABS: BASOPHIL % 0.2 % (0.0-0.4); Basophil (Absolute #) 0.02 (0-0.4); Eosinophil % 0.9 % (0.00-5.0); Eosinophil (Absolute #) 0.09 (0-0.5); Granulocyte Absolute (ANC) 5.97 (1.4-6.9); Granulocytes % 61.6 % (36.0-66.0); Hematocrit 45.8 % (42-50); Hemoglobin 15.5 gm/dl (12.5-18.0); Lymphocyte (Absolute #) 2.67 (1.0-4.6); Lymphocytes % 27.5 % (24.0-44.0); Mean Cell Volume 93.7 fl (78-100); Mean Corpuscular Hemoglobin 31.7 pg (26-32); Mean Corpuscular Hgb Concent. 33.8 g/dl (32-36); Mean Platelet Volume 9.5 fl (6-9.5); Monocyte (Absolute #) 0.95 (0.0-1.3); Monocytes % 9.8 % (0.0-12.0); Platelet Count 230 K/mm3 (150-450); Red Blood Count 4.89 M/mm3 (4.1-5.6); Red Cell Distribution Width 13.2 % (11.5-14.0); White Blood Count 9.7 K/mm3 (4.0-10.5)
[2019-03-05 23:02] LABS: ALBUMIN 4.5 g/dL (3.5-5.0); ALKALINE PHOSPHATASE 48 U/L (38-126); BLOOD UREA NITROGEN 16 mg/dL (9-20); CHLORIDE 102 mmol/L (98-107); Calcium 8.9 mg/dL (8.4-10.2); Carbon Dioxide 30 mmol/L (22-30); Creatinine 1 0.69 mg/dL (0.66-1.25); Glucose 131 mg/dL (74-106); Potassium 3.8 mmol/L (3.5-5.1); SGOT/AST 32 U/L (17-59); SGPT/ALT 30 U/L (0-50); SODIUM 142 mmol/L (137-145)
[2019-03-05] MEDS ORDERED: cereBYX 50 MG/ML*** 500 MG in Sodium Chloride 0.9% 100 ML IVPB 100 ML IV ONE (23:13)
[2019-03-05] MEDS ORDERED: cereBYX 50 MG/ML ONE (23:14)
[2019-03-05 23:16] LABS: Appearance CLEAR (CLEAR); Bilirubin NEGATIVE (NEGATIVE); Blood MODERATE Ery/ul (0-5); Glucose 50 mg/dL (NEGATIVE); Ketones NEGATIVE (NEGATIVE); Leukocyte Esterase NEGATIVE (NEGATIVE); Nitrite NEGATIVE (NEGATIVE); Protein,Urine Dip NEGATIVE (Negative); Specific Gravity 1.009 (1.005-1.025); Urobilinogen NEGATIVE mg/dL (0-1)
[2019-03-05] MEDS ORDERED: Sodium Chloride 0.9% 100 ML IVPB 200 ML IV ONE (23:18)
[2019-03-05 23:23] VITALS: O2SAT 98
[2019-03-06] MEDS ORDERED: cereBYX 50 MG/ML*** 1,000 MG in Sodium Chloride 0.9% 100 ML IVPB 100 ML IV ONE (00:05)
[2019-03-06] MEDS ORDERED: cereBYX 50 MG/ML ONE (00:08)
[2019-03-06 00:10] VITALS: BP 148/87
[2019-03-06 00:26] VITALS: PULSE 118
--- NOTE | 2019-03-06 08:55 | XRAY ---
Indication: Seizure. Multiple contiguous axial images obtained through the head without contrast. Comparison: October 22, 2018. Again left paramedian occipital craniotomy, hypoplastic left cerebellum, and bilateral ventricular shunt catheters. No acute intracranial hemorrhage, hydrocephalus, or mass effect. Remaining bony calvarium intact. Stable opacification of the right mastoid air cells. Remaining visualized paranasal sinuses and left mastoid air cells are clear. Impression: 1. Stable bilateral ventricular shunt catheters without hydrocephalus and hypoplastic left cerebellum. 2. Stable opacification of the right mastoid air cells. 3. No new or acute intracranial abnormalities. Comment: Preliminary interpretation was made by [facility]. No discrepancy. CT DI 62.34
== END 2019-03-06 01:07 | disposition short-term general hospital (02) ==
LOC: ED 21:01
DX: G40.901 Epilepsy, unspecified, not intractable, with status epilepticus (principal); I10 Essential (primary) hypertension; F32.9 Major depressive disorder, single episode, unspecified; G91.9 Hydrocephalus, unspecified; Z79.899 Other long term (current) drug therapy
CPT/HCPCS: 36000; 36415; 51702; 70450; 80053; 80164; 80177; 81001; 82962; 85025; 93005; 96360; 96361; 96365; 96366; 96374; 99285; J2060; Q2009

== ENCOUNTER 2019-08-15 16:56 | Emergency (ER) | payer MEDICARE ==
[2019-08-15] MEDS ORDERED: Keppra 500 MG/5 ML ONE (17:01)
[2019-08-15] MEDS ORDERED: VERSED 5 MG/5 ML ONE (17:01)
[2019-08-15] MEDS ORDERED: Keppra 500 MG/5 ML*** 1,000 MG in D5w 100ML Mini Bag 100 ML 100 ML IV ONE (17:06)
[2019-08-15] MEDS ORDERED: Zofran 4 MG/2 ML VIAL IV ONE (17:06)
[2019-08-15] MEDS ORDERED: Sodium Chloride 0.9% 1000 ML 1,000 ML IV STA ×2 (17:06→19:05)
--- NOTE | 2019-08-15 17:13 | ERPHSYRPT ---
- History of Present Illness Time Seen by Provider: 08/15/19 17:06 Source: patient, EMS, other () Exam Limitations: clinical condition Physician History: 39 years old male with history of seizure disorder, hydrocephalus status post shunting is brought in the ER by EMS with seizure episode. As per report patient was having staring episodes at home and called EMS lot of age the ER he has a full-blown tonic-clonic seizure, was given 2.5 mg IM were said and improved. Presentation in the ER patient is postictal but not seizing. denies any recent medication change, sleep deprivation, fever or chills or any other stressors. As per he does get seizure every 3-4 months. He did not have a fall or head injury today. Timing/Duration: today Severity: moderate Allergies/Adverse Reactions: lorazepam [From Ativan] Allergy (Verified 08/15/19 17:20) Home Medications: Amlodipine Besylate [Norvasc] 5 mg PO DAILY 05/01/16 [History] Lisinopril 20 mg PO DAILY 05/01/16 [History] Sertraline HCl 100 mg [Zoloft 100 MG] 100 mg PO DAILY 05/01/16 [History] Divalproex Sodium [Divalproex Sodium ER] 500 mg PO BID 08/28/18 [History] Divalproex Sodium ER 250 mg [Depakote EXTENDED RELEASE 250 MG] 250 mg PO BID 08/15/19 [History] Ropinirole HCl [Requip] 1 mg PO HS 08/15/19 [History] Hx Tetanus, Diphtheria Vaccination/Date Given: No Hx Influenza Vaccination/Date Given: Yes Hx Pneumococcal Vaccination/Date Given: No - Review of Systems All Other Systems: Unable due to condition (Postictal patient) - Past Medical History Pertinent Past Medical History: Yes Neurological History: Seizures Cardiac History: Hypertension Psycho-Social History: Depression Other Medical History: 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, FOCAL SEIZURE 2017 - Past Surgical History Past Surgical History: Yes Neuro Surgical History: Brain Shunt Other Surgical History: brain shunt replacement 2018 - Social History Smoking Status: Never smoker Exposure to second hand smoke: No Drug Use: none Patient Lives Alone: No - Nursing Vital Signs Nursing Vital Signs: Initial Vital Signs Temperature 99.1 F 08/15/19 17:03 Pulse Rate 126 H 08/15/19 17:03 Respiratory Rate 20 08/15/19 17:03 Blood Pressure 116/84 08/15/19 17:03 O2 Sat by Pulse Oximetry 96 08/15/19 17:03 Pain Scale Pain Intensity 0 - Carson Coma Scale Best Eye Response (Luis): (3) open to voice (YEV or any) Best Verbal Response (Lusi): (4) confused conversation Best Motor Response (Luis): (5) localizes to pain Carson Total: 12 - Physical Exam General Appearance: mild distress Eye Exam: bilateral eye: normal inspection, PERRL Ears, Nose, Throat Exam: normal ENT inspection, TMs normal, pharynx normal Neck Exam: normal inspection, non-tender, supple Respiratory: normal breath sounds, lungs clear Cardiovascular: other (tachycardia with a regular rhythm) Gastrointestinal: soft, normal bowel sounds, No tenderness, No distention Back Exam: normal inspection, No CVA tenderness Extremity Exam: normal inspection 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, disoriented to place, 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 exam cannot be done.) Motor/Sensory: negative Babinski's sign, positive Babinski's sign DTR: bicep (R): 2+, bicep (L): 2+, knee (R): 2+, knee (L): 2+ Skin Exam: normal color SpO2 Interpretation: O2 applied O2 Delivery: Nasal Cannula - Course Nursing assessment & vital signs reviewed: Yes EKG Interpreted by Me: RATE (122), Sinus Tach (while working in his eye and he will call in a hole ER and he is a Coumadin level is is a that was his only been [phone] is out of her right arm and right the rehabilitation physician in the ED he is a of the I don't see an I although everything is IN everything the higher side as it is signed and on the unknown he is in a very and and a) Ordered Tests: Active Orders 24 hr Category Date Time Status Accucheck STAT Care 08/15/19 17:06 Active CO2 Monitoring STAT Care 08/15/19 17:15 Active Cooker Meal STAT Care 08/15/19 17:07 Active EKG-ER Only STAT Care 08/15/19 17:06 Active IV Insertion STAT Care 08/15/19 17:06 Active Pulse Oximetry (ED) STAT Care 08/15/19 17:06 Active Seizure Precautions -SCCHED STAT Care 08/15/19 17:06 Active CHEST 1 VIEW (PORTABLE) Stat Exams 08/15/19 17:07 Taken HEAD WITHOUT CONTRAST [CT] Stat Exams 08/15/19 18:10 Taken CBC W DIFF Stat Lab 08/15/19 17:23 Completed CMP Stat Lab 08/15/19 17:23 Completed Manual Differential NC Stat Lab 08/15/19 17:23 Completed TROPONIN Q3H Lab 08/15/19 19:15 Completed TROPONIN Q3H Lab 08/15/19 22:15 Ordered UA W/RFX UR CULTURE Stat Lab 08/15/19 19:14 Completed Medication Summary Discontinued Medications Generic Name Dose Route Start Last Admin Trade Name Freq PRN Reason Stop Dose Admin Levetiracetam 1,000 mg/ Sodium 110 mls @ 330 mls/hr 08/15/19 17:30 08/15/19 17:38 Chloride IV 08/15/19 17:49 330 mls/hr 1730 DUNCAN Administration Levetiracetam 1,000 mg/ 110 mls @ 400 mls/hr 08/15/19 17:06 08/15/19 17:30 Dextrose IV 08/15/19 17:22 Not Given STAT ONE Sodium Chloride 1,000 mls @ 999 mls/hr 08/15/19 17:06 08/15/19 18:50 Sodium Chloride 0.9% 1000 Ml IV 08/15/19 18:06 Infused .Q1H1M STA Infusion Sodium Chloride Confirm 08/15/19 17:33 Sodium Chloride 0.9% 1000 Ml Administered 08/15/19 17:34 Dose 1,000 mls @ ud .ROUTE .STK-MED ONE Sodium Chloride 1,000 mls @ 999 mls/hr 08/15/19 19:05 08/15/19 19:18 Sodium Chloride 0.9% 1000 Ml IV 08/15/19 20:05 999 mls/hr .Q1H1M STA Administration Sodium Chloride Confirm 08/15/19 19:05 Sodium Chloride 0.9% 1000 Ml Administered 08/15/19 19:06 Dose 1,000 mls @ ud .ROUTE .STK-MED ONE Clindamycin HCl/Dextrose 600 mg in 50 mls @ 100 mls/hr 08/15/19 19:09 19:16 Clindamycin-D5w 600 Mg/50 Ml IV 08/15/19 19:38 Not Given STAT STA Ampicillin Sodium/Sulbactam Sodium 1.5 gm in 100 mls @ 200 mls/hr 08/15/19 19: 12 08/15/19 19:55 Unasyn 1.5gm / Nacl 100ml IV 08/15/19 19:41 Infused STAT STA Infusion Ampicillin Sodium/Sulbactam Sodium Confirm 08/15/19 19:13 Unasyn 1.5gm / Nacl 100ml Administered 08/15/19 19:14 Dose 1.5 gm in 100 mls @ ud .ROUTE .STK-MED ONE Levetiracetam Confirm 08/15/19 17:01 Keppra 500 Mg/5 Ml Administered 08/15/19 17:02 Dose 1,000 mg .ROUTE .STK-MED ONE Midazolam HCl Confirm 08/15/19 17:01 Versed 5 Mg/5 Ml Administered 08/15/19 17:02 Dose 5 mg .ROUTE .STK-MED ONE Ondansetron HCl 4 mg 08/15/19 17:06 08/15/19 17:38 Zofran 4 Mg/2 Ml Vial IV 08/15/19 17:07 4 mg STAT ONE Administration Ondansetron HCl Confirm 08/15/19 17:32 Zofran 4 Mg/2 Ml Vial Administered 08/15/19 17:33 Dose 4 mg .ROUTE .STK-MED ONE Lab/Rad Data: Laboratory Result Diagrams 08/15/19 17:23 08/15/19 17:23 Laboratory Results 08/15/19 08/15/19 08/15/19 Range/Units 19:15 19:14 17:23 WBC (4.0-10.5) K/mm3 RBC (4.1-5.6) M/mm3 Hgb (12.5-18.0) gm/dl Hct (42-50) % MCV (78-100) fl MCH (26-32) pg MCHC (32-36) g/dl RDW (11.5-14.0) % Plt Count (150-450) K/mm3 MPV (6-9.5) fl Sodium 143 (137-145) mmol/L Potassium 4.0 (3.5-5.1) mmol/L Chloride 105 (98-107) mmol/L Carbon Dioxide 17 L (22-30) mmol/L Anion Gap 25.0 H (5-15) MEQ/L BUN 16 (9-20) mg/dL Creatinine 0.80 (0.66-1.25) mg/dL Estimated GFR > 60.0 ML/MIN Glucose 136 H (74-106) mg/dL Calcium 9.2 (8.4-10.2) mg/dL Total Bilirubin 0.30 (0.2-1.3) mg/dL AST 31 (17-59) U/L ALT 29 (0-50) U/L Alkaline Phosphatase 48 (38-126) U/L Troponin I < 0.012 (0.000-0.034) ng/mL Serum Total Protein 7.9 (6.3-8.2) g/dL Albumin 4.5 (3.5-5.0) g/dL Urine Color STRAW (YELLOW) Urine Appearance CLEAR (CLEAR) Urine pH 5.0 (5-6) Ur Specific [place] 1.013 (1.005-1.025) Urine Protein NEGATIVE (Negative) Urine Ketones TRACE (NEGATIVE) Urine Blood SMALL (0-5) Scott/ul Urine Nitrite NEGATIVE (NEGATIVE) Urine Bilirubin NEGATIVE (NEGATIVE) Urine Urobilinogen NEGATIVE (0-1) mg/dL Ur Leukocyte Esterase NEGATIVE (NEGATIVE) Urine WBC (Auto) NONE (0-5) /HPF Urine RBC (Auto) NONE (0-2) /HPF U Epithel Cells (Auto) NONE (FEW) /HPF Urine Bacteria (Auto) NONE (NEGATIVE) /HPF Urine Mucus (Auto) SLIGHT (NEGATIVE) /HPF Urine Culture Reflexed NO (NO) Urine Glucose NEGATIVE (NEGATIVE) mg/dL 08/15/19 Range/Units 17:23 WBC 11.5 H (4.0-10.5) K/mm3 RBC 4.68 (4.1-5.6) M/mm3 Hgb 14.9 (12.5-18.0) gm/dl Hct 44.0 (42-50) % MCV 94.0 (78-100) fl MCH 31.8 (26-32) pg MCHC 33.9 (32-36) g/dl RDW 13.6 (11.5-14.0) % Plt Count 257 (150-450) K/mm3 MPV 8.9 (6-9.5) fl Sodium (137-145) mmol/L Potassium (3.5-5.1) mmol/L Chloride (98-107) mmol/L Carbon Dioxide (22-30) mmol/L Anion Gap (5-15) MEQ/L BUN (9-20) mg/dL Creatinine (0.66-1.25) mg/dL Estimated GFR ML/MIN Glucose (74-106) mg/dL Calcium (8.4-10.2) mg/dL Total Bilirubin (0.2-1.3) mg/dL AST (17-59) U/L ALT (0-50) U/L Alkaline Phosphatase (38-126) U/L Troponin I (0.000-0.034) ng/mL Serum Total Protein (6.3-8.2) g/dL Albumin (3.5-5.0) g/dL Urine Color (YELLOW) Urine Appearance (CLEAR) Urine pH (5-6) Ur Specific [place] (1.005-1.025) Urine Protein (Negative) Urine Ketones (NEGATIVE) Urine Blood (0-5) Scott/ul Urine Nitrite (NEGATIVE) Urine Bilirubin (NEGATIVE) Urine Urobilinogen (0-1) mg/dL Ur Leukocyte Esterase (NEGATIVE) Urine WBC (Auto) (0-5) /HPF Urine RBC (Auto) (0-2) /HPF U Epithel Cells (Auto) (FEW) /HPF Urine Bacteria (Auto) (NEGATIVE) /HPF Urine Mucus (Auto) (NEGATIVE) /HPF Urine Culture Reflexed (NO) Urine Glucose (NEGATIVE) mg/dL - Progress Progress: improved, re-examined Progress Note: 08/15/19 20:08 39 years old is evaluated for seizures. Patient was postictal on presentation. Gradually he was more oriented and currently at baseline. I have given him a gram of Keppra and did not have any seizure episode while in the ER. I have obtained CT head with his history of hydrocephalus with shunt but is negative for any acute findings. Chest x-ray showed congestion and right-sided infiltrate which could be from aspiration. Start him on Unasyn here and will continue with Augmentin to go home. no acute electrolyte abnormalities. I have repeated fully R. exam but no acute findings and is nonfocal. Seizure is similar to previous episodes. I do not think he needs any further workup and is stable for discharge. Discussed signs and symptoms of worsening return to ER with the patient/ seem understanding. Counseled pt/family regarding: lab results, diagnosis, need for follow-up, rad results - Departure Departure Disposition: Home Clinical Impression: Seizure Aspiration pneumonia Qualifiers: Aspiration pneumonia type: unspecified Laterality: right Lung location: unspecified part of lung Qualified Code(s): J69.0 - Pneumonitis due to inhalation of food and vomit Condition: Stable Critical Care Time: No Referrals: MARY LOCKETT MD [Primary Care Provider] - Follow Up with PCP/3 days Instructions: Seizures, Adult (DC), Pneumonia, Adult (DC) Additional Instructions: take seizure medications and recommended. Follow up with primary care and neurology for reevaluation. Return to ER for any worsening. Prescriptions: Amox Tr/Potass Clav. 875 mg [Augmentin 875-125 Tablet] 875 mg PO BID #15 tablet
[2019-08-15 17:25] LABS: Hemoglobin 14.9 gm/dl (12.5-18.0); Mean Corpuscular Hemoglobin 31.8 pg (26-32); Mean Corpuscular Hgb Concent. 33.9 g/dl (32-36); Mean Platelet Volume 8.9 fl (6-9.5); Platelet Count 257 K/mm3 (150-450); Red Blood Count 4.68 M/mm3 (4.1-5.6); Red Cell Distribution Width 13.6 % (11.5-14.0); White Blood Count 11.5 K/mm3 (4.0-10.5)
[2019-08-15] MEDS ORDERED: SODIUM CHLORIDE 0.9% IV SCH (17:30)
[2019-08-15] MEDS ORDERED: KEPPRA IV SCH (17:30)
[2019-08-15] MEDS ORDERED: Zofran 4 MG/2 ML VIAL ONE (17:32)
[2019-08-15] MEDS ORDERED: Sodium Chloride 0.9% 1000 ML 1,000 ML ONE ×2 (17:33→19:05)
[2019-08-15 17:45] LABS: ALBUMIN 4.5 g/dL (3.5-5.0); ALKALINE PHOSPHATASE 48 U/L (38-126); BLOOD UREA NITROGEN 16 mg/dL (9-20); CHLORIDE 105 mmol/L (98-107); Calcium 9.2 mg/dL (8.4-10.2); Carbon Dioxide 17 mmol/L (22-30); Glucose 136 mg/dL (74-106); SGOT/AST 31 U/L (17-59); SGPT/ALT 29 U/L (0-50); SODIUM 143 mmol/L (137-145); Total Protein 7.9 g/dL (6.3-8.2)
[2019-08-15] MEDS ORDERED: CLINDAMYCIN-D5W 600 MG/50 ML*** 600 MG/50 ML BAG IV STA (19:09)
[2019-08-15] MEDS ORDERED: Unasyn 1.5GM / NaCl 100ML 1.5 GM/100 ML IVPB IV STA (19:12)
[2019-08-15] MEDS ORDERED: Unasyn 1.5GM / NaCl 100ML 1.5 GM/100 ML IVPB ONE (19:13)
[2019-08-15 19:40] LABS: Appearance CLEAR (CLEAR); Bilirubin NEGATIVE (NEGATIVE); Blood SMALL Ery/ul (0-5); Glucose NEGATIVE (NEGATIVE); Ketones TRACE (NEGATIVE); Leukocyte Esterase NEGATIVE (NEGATIVE); Mucus SLIGHT /HPF (NEGATIVE); Nitrite NEGATIVE (NEGATIVE); Protein,Urine Dip NEGATIVE (Negative); Specific Gravity 1.013 (1.005-1.025); Urobilinogen NEGATIVE mg/dL (0-1)
[2019-08-15 19:54] VITALS: BP 150/99; PULSE 93; O2SAT 98
[2019-08-15 22:04] LABS: BAND 2 % (0.0-2.0); Basophil 1 % (0.0-1.0); Eosinophil 3 % (0.00-3.0); Lymphocytes 26 % (24-44); Monocyte 4 % (0.0-12.0); Neutrophils 64 % (36.-66.); Platelet Estimate NORMAL (NORMAL); Total Cells Counted 100
--- NOTE | 2019-08-16 08:36 | XRAY ---
Indication: Seizure. Multiple contiguous axial images obtained through the head without contrast. Comparison: March 05, 2019. Stable left paramedian occipital craniotomy, hypoplastic left cerebellum, and bilateral ventricular shunt catheters in situ. Again no acute intracranial hemorrhage, hydrocephalus, or mass effect. Remaining bony calvarium intact. Stable opacification of the right mastoid air cells. Remaining visualized paranasal sinuses and left mastoid air cells are clear. Impression: 1. Stable chronic findings including bilateral ventricular shunt catheters without hydrocephalus, hypoplastic left cerebellum, and opacification of the right mastoid air cells. 2. No new or acute intracranial abnormalities. CT DI 71.08
--- NOTE | 2019-08-16 08:44 | XRAY ---
Indication: Possible seizure. Comparison: February 02, 2018. Portable chest underinflated with mild bibasilar infiltrates versus atelectasis. Remaining heart, lungs, and bony thorax unremarkable with stable right shunt catheter.
== END 2019-08-15 20:20 | disposition home or self-care (01) ==
LOC: ED 16:56
DX: G40.909 Epilepsy, unspecified, not intractable, without status epilepticus (principal); J69.0 Pneumonitis due to inhalation of food and vomit; Z79.899 Other long term (current) drug therapy
CPT/HCPCS: 36415; 70450; 71045; 80053; 81001; 82962; 84484; 85025; 93005; 93041; 94760; 94770; 96360; 96361; 96365; 96374; 99285; J0295; J1953; J2250; J2405

== ENCOUNTER 2019-08-26 11:49 | Emergency (ER) | payer MEDICARE ==
[2019-08-26 12:06] VITALS: O2SAT 94
--- NOTE | 2019-08-26 12:32 | ERPHSYRPT ---
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 Denies any medication, numbness tingling or focal weakness. No fall or trauma. Reports having similar symptoms in the past when there was a problem with shunt. He denies any neck pain, fever or chills.not on any blood thinners. Timing/Duration: day(s) (3) Quality: dullness, sharpness Head Pain Location: occipital Severity of Pain-Max: moderate Severity of Pain-Current: moderate Recent Head Trauma: no recent headache/trauma Modifying Factors: Improves With: rest Associated Symptoms: light-headedness, No confusion, No fatigue, No facial pain , No loss of consciousness, No nausea/vomiting Previous symptoms: same symptoms as today Allergies/Adverse Reactions: lorazepam [From Ativan] Allergy (Verified 08/26/19 12:06) Home Medications: Amlodipine Besylate [Norvasc] 5 mg PO DAILY 05/01/16 [History] Lisinopril 20 mg PO DAILY 05/01/16 [History] Sertraline HCl 100 mg [Zoloft 100 MG] 100 mg PO DAILY 05/01/16 [History] Divalproex Sodium [Divalproex Sodium ER] 500 mg PO BID 08/28/18 [History] Divalproex Sodium ER 250 mg [Depakote EXTENDED RELEASE 250 MG] 250 mg PO BID 08/15/19 [History] Ropinirole HCl [Requip] 1 mg PO HS 08/15/19 [History] Hx Tetanus, Diphtheria Vaccination/Date Given: No Hx Influenza Vaccination/Date Given: Yes Hx Pneumococcal Vaccination/Date Given: No - Review of Systems Constitutional: No Symptoms Eyes: No Symptoms Ears, Nose, & Throat: No Symptoms Respiratory: No Symptoms Cardiac: No Symptoms Abdominal/Gastrointestinal: No Symptoms Musculoskeletal: No Symptoms Skin: No Symptoms Neurological: Dizziness, Headache Psychological: No Symptoms Endocrine: No Symptoms Hematologic/Lymphatic: No Symptoms Immunological/Allergic: No Symptoms - Past Medical History Pertinent Past Medical History: Yes Neurological History: Seizures Cardiac History: Hypertension Psycho-Social History: Depression Other Medical History: 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, FOCAL SEIZURE 2017 - Past Surgical History Past Surgical History: Yes Neuro Surgical History: Brain Shunt Other Surgical History: brain shunt replacement 2018 - Social History Smoking Status: Never smoker Exposure to second hand smoke: No Drug Use: none Patient Lives Alone: No - Nursing Vital Signs Nursing Vital Signs: Initial Vital Signs Temperature 98.0 F 08/26/19 11:52 Pulse Rate 89 08/26/19 11:52 Blood Pressure 145/100 08/26/19 11:52 O2 Sat by Pulse Oximetry 94 L 08/26/19 11:52 Pain Scale Pain Intensity 7 - Physical Exam General Appearance: no apparent distress Eye Exam: eyes nml inspection, other, No scleral icterus Ears, Nose, Throat Exam: normal ENT inspection, TMs normal, pharynx normal Neck Exam: normal inspection, non-tender, full range of motion Respiratory Exam: normal breath sounds, lungs clear Cardiovascular Exam: regular rate/rhythm, normal heart sounds Gastrointestinal/Abdominal Exam: soft, No tenderness Back Exam: normal inspection Extremity Exam: normal inspection, normal range of motion Mental Status Exam: alert, oriented x 3, 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 Exam: normal hearing, normal speech, PERRL, No facial droop Coordination/Gait Exam: normal finger to nose, No normal gait Motor/Sensory Exam: no motor deficit, no sensory deficit, negative Babinski's sign DTR Exam: bicep (R): 2+, bicep (L): 2+, tricep (R): 2+, tricep (L): 2+, knee (R) : 2+, knee (L): 2+ Skin Exam: normal color, warm SpO2 Interpretation: normal SpO2: 94 O2 Delivery: Room Air - Course Nursing assessment & vital signs reviewed: Yes Ordered Tests: Active Orders 24 hr Category Date Time Status NPO (ED) STAT Care 08/26/19 12:32 Active HEAD WITHOUT CONTRAST [CT] Stat Exams 08/26/19 12:32 Taken - Progress Progress: re-examined, unchanged Air Movement: fair Progress Note: 08/26/19 14:27 39 years old hydrocephalus status post DISASTER OR DAMAGE CONTROL SPECIALIST shunts is evaluated for occipital headache along with dizziness with ambulation for the last 3 days. Patient is offered pain medication to relieve her headache but he refused. Wanted to get CT head done. CT showed 2 mild to moderate hydrocephalus which is changed from previous studies. Neurosurgical evaluation is needed. [facility], discussed with Dr. Khan the patient is accepted for transfer. Plan discussed with patient and in detail which they seem understanding. 08/26/19 14:32 - Departure Departure Disposition: Transfer Clinical Impression: Hydrocephalus in adult Condition: Stable Critical Care Time: No Referrals: MARY LOCKETT MD [Primary Care Provider] -
[2019-08-26 15:07] VITALS: BP 127/85; PULSE 85
--- NOTE | 2019-08-26 21:22 | XRAY ---
Indication: Headache. 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 Hydrocephalus. Multiple contiguous axial images obtained through the head without contrast. Comparison: August 15, 2019. Stable left paramedian occipital craniotomy, hypoplastic left cerebellum, and bilateral ventricular shunt catheters in situ. New mild to moderate communicating type hydrocephalus. Left lateral ventricle now measures 1.8 cm and the right measures 2.2 cm in diameter. No acute intracranial hemorrhage or mass effect. Remaining bony calvarium intact. Stable opacification of the right mastoid air cells. Remaining visualized paranasal sinuses and left mastoid air cells are clear. Impression: New mild/moderate communicating hydrocephalus with stable bilateral ventricular shunt catheters. Comment: Preliminary interpretation was made by [facility]. No discrepancy. CTDI 70.87
== END 2019-08-26 15:05 | disposition short-term general hospital (02) ==
LOC: ED 11:49
DX: G91.9 Hydrocephalus, unspecified (principal)
CPT/HCPCS: 70450; 99284